=== PATIENT | male | born 1980 | race Caucasian/White ===

== ENCOUNTER 2023-01-19 12:31 | Outpatient (CLI) | payer OTHER, SELFPAY ==
--- NOTE | 2023-01-19 12:43 | XR_ITS ---
WS: [id number] Exam: XR ankle RT 2V [id number] Date/Time of Exam: 01/19/2023 12:53 PM Reason For Exam: R ANKLE PAIN No acute fracture or dislocation noted. The ankle mortise is equidistant. A rounded metallic density resembling that of a BB is noted along the posterior lateral aspect of the ankle. This is likely a so ft tissue foreign body. IMPRESSION: 1. Unremarkable RIGHT ankle. 2. Probable metallic soft tissue foreign body most likely a BB seen along the lateral posterior aspec t of the ankle.
--- NOTE | 2023-01-19 12:43 | XR_ITS ---
WS: [id number] Exam: XR hip RT 2-3V wo/w pel* [id number] Date/Time of Exam: 01/19/2023 12:53 PM Reason For Exam: R HIP PAIN Findings: No fractures or bone anomalies are noted. No unusual soft tissue masses or calcifications are seen. The bony elements of the hip are in adequate alignment. IMPRESSION: Negative RIGHT hip. Tonnis classification: 0
--- NOTE | 2023-01-19 12:43 | XR_ITS ---
WS: [id number] Exam: [place] [id number] Date/Time of Exam: 01/19/2023 12:53 PM Reason For Exam: R SHOULDER PAIN Sternal clavicular joints are unremarkable as visualized. No obvious bone destruction or fracture. IMPRESSION: 1. No obvious fracture or bone destruction. Recommendations: If the patient fails to respond to conservative management more detailed evaluation with CT could be considered.
--- NOTE | 2023-01-19 12:43 | XR_ITS ---
WS: [id number] Exam: XR knee RT 3V* [id number] Date/Time of Exam: 01/19/2023 12:53 PM Reason For Exam: R KNEE PAIN No fracture or dislocation. The joint compartments are preserved. No joint effusion. Unremarkable sof t tissues. IMPRESSION: 1. Negative RIGHT knee.
== END 2023-01-19 12:32 | disposition home or self-care (01) ==
LOC: RAD 12:39
PROVIDERS: PCP Nurse Practitioner; Visit Provider Nurse Practitioner
DX: M25.511 Pain in right shoulder (principal); M25.551 Pain in right hip; M25.561 Pain in right knee; M25.571 Pain in right ankle and joints of right foot
CPT/HCPCS: 71130; 73502; 73562; 73600

== ENCOUNTER 2023-02-11 08:41 | Outpatient (CLI) | payer OTHER, SELFPAY ==
[2023-02-11 08:52] VITALS: PULSE 85; RESP 18; O2SAT 98
[2023-02-11] MEDS: albuterol 2.5 mg/3 mL Neb INHALATION (08:52)
[2023-02-11 08:56] VITALS: PULSE 98
== END 2023-02-11 08:42 | disposition home or self-care (01) ==
LOC: RT 08:41
PROVIDERS: Visit Provider Nurse Practitioner Family
DX: R06.02 Shortness of breath (principal)
CPT/HCPCS: 94060; J7613